=== PATIENT | female | born 1985 | race Caucasian/White ===

== ENCOUNTER 2019-09-30 07:17 | Inpatient (IN) ==
[2019-09-30] MEDS ORDERED: BUTORPHANOL 1 MG/ML VIAL IV PRN (08:17)
[2019-09-30] MEDS ORDERED: ONDANSETRON 4 MG/2 ML VIAL IV PRN (08:17)
[2019-09-30] MEDS ORDERED: BUTORPHANOL 2 MG/ML VIAL IV PRN (08:17)
[2019-09-30] MEDS ORDERED: LACTATED RINGERS 1,000 ML IV SCH (08:30)
[2019-09-30] MEDS ORDERED: OXYTOCIN/LR 20 UNIT/1,000 ML BAG IV SCH (08:30)
[2019-09-30] MEDS ORDERED: ONDANSETRON 4 MG/2 ML VIAL IV ONE (08:37)
[2019-09-30] MEDS ORDERED: CITRIC ACID/SODIUM CITRATE 30 ML UDCUP PO ONE (08:37)
[2019-09-30] MEDS ORDERED: LACTATED RINGERS 1,000 ML IV ONE (08:37)
[2019-09-30] MEDS ORDERED: hydrOXYzine HCL 25 MG/1 ML VIAL IM PRN (08:37)
[2019-09-30] MEDS ORDERED: FAMOTIDINE 20 MG/2 ML VIAL IV ONE (08:37)
[2019-09-30] MEDS ORDERED: diphenhydrAMINE 50 MG/1 ML VIAL IV PRN ×2 (08:37)
[2019-09-30] MEDS ORDERED: PROMETHAZINE 25 MG/1 ML VIAL IM ONE (08:37)
[2019-09-30] MEDS ORDERED: ePHEDrine 50 MG/ML AMP IV PRN (08:37)
[2019-09-30 08:42] LABS: Basophils % 0.2 % (0.0-0.8); Eosinophils % 0.3 % (0.00-10.9); Hematocrit 34.8 VOL% (35.7-47.0); Immature Granulocytes % 0.4 %; Immature Granulocytes Absolute 0.04 #; Lymphocytes # 1.9 10*3/uL (1.4-4.0); Mean Corpuscular HGB Conc 34.5 GM/DL (32-36); Mean Corpuscular Volume 85.3 FL (87-102); Mean Platelet Volume 10.5 FL (9.6-12.0); Monocytes % 5.9 % (1.7-12.7); Neutrophils % 72.2 % (38.7-73.9); Platelet Count 298 T/CUMM (130-400); Red Blood Count 4.08 MC/CUMM (3.8-5.5); Red Cell Distribution Width 14.5 % (9.3-17.3); White Blood Count 8.9 T/CUMM (4-12)
[2019-09-30 08:52] LABS: INR 0.9; PT Patient Result 9.4 SECS (9.6-12.2); Partial Thromboplastin Time 25.7 SECS (20.8-36.0)
[2019-09-30] MEDS ORDERED: ROPIVACAINE 0.2% 100 ML EPIDURAL SCH (09:00)
[2019-09-30 09:04] LABS: Albumin 2.8 G/DL (3.4-5.0); Osmolality,Calculated 266.1 MOS/KG (273-304); Total Protein 6.7 G/DL (6.4-8.3); Uric Acid 6.1 MG/DL (2.6-6.0)
[2019-09-30 12:25] LABS: Apearance,Urine CLEAR (Clear); Bilirubin,Urine Negative (Negative); Blood, Urine Negative (Negative); Glucose,Urine (UA) Negative (Negative); Ketones,Urine 5 mg/dL (Negative); Nitrite,Urine Negative (Negative); Protein,Urine Negative; RBC,Urine 1 /HPF (0-4); Squamous Epithelial Cell,Urine Occasional /HPF (0-10); Urine Color Straw (Yellow); Urine Specific Gravity 1.005 (1.001-1.035); Urine Urobilinogen < 2.0 EU/DL (0.2-1.0); WBC,Urine <1 /HPF (0-6)
[2019-09-30] MEDS ORDERED: LIDOCAINE 1% 50 ML VIAL ONE (14:01)
[2019-09-30] MEDS ORDERED: miSOPROStoL 200 MCG TABLET ONE (14:01)
[2019-09-30] MEDS ORDERED: CARBOPROST TROMETHAMINE 250 MCG/ML AMP IM ONE (14:02)
[2019-09-30] MEDS ORDERED: oxyCODONE/ACETAMINOPHEN 5-325 MG TABLET PO PRN ×2 (17:45)
[2019-09-30] MEDS ORDERED: OXYTOCIN/LR 20 UNIT/1,000 ML BAG IV ONE (17:45)
[2019-09-30] MEDS ORDERED: HYDROCORTISONE 2.5% RECTAL CREAM 30 GM TUBE TOP PRN (17:45)
[2019-09-30] MEDS ORDERED: BENZOCAINE 20%/MENTHOL 0.5% SPRAY 56 GM CAN TOP PRN (17:45)
[2019-09-30] MEDS ORDERED: LANOLIN 50% CREAM 0.3 OZ TUBE TOP PRN (17:45)
[2019-09-30] MEDS ORDERED: ACETAMINOPHEN 325 MG TABLET PO PRN (17:45)
[2019-09-30] MEDS ORDERED: WITCH HAZEL PADS 100/JAR TOP PRN (17:45)
[2019-09-30] MEDS ORDERED: RHO(D) IMMUNE GLOBULIN 300 MCG SYRINGE IM ONE (17:45)
[2019-09-30] MEDS ORDERED: MEASLES/MUMPS/RUBELLA VACCINE 0.5 ML VIAL SUBCUT ONE (17:45)
[2019-09-30] MEDS ORDERED: BISACODYL 10 MG SUPP RECTAL PRN (17:45)
[2019-09-30] MEDS ORDERED: DIPH/TET/ACEL PERT BOOSTER VACCINE 0.5 ML VIAL IM ONE (17:45)
[2019-09-30] MEDS: DOCUSATE SODIUM 100 MG CAPSULE PO SCH (21:06)
[2019-10-01] MEDS: IBUPROFEN 800 MG TABLET PO PRN ×2 (00:20→16:43)
[2019-10-01 05:06] LABS: Basophils % 0.3 % (0.0-0.8); Eosinophils # 0.1 10*3/uL (0.0-0.87); Eosinophils % 1.2 % (0.00-10.9); Hematocrit 31.3 VOL% (35.7-47.0); Hemoglobin 10.5 GM/DL (12.0-16.0); Immature Granulocytes % 0.5 %; Immature Granulocytes Absolute 0.06 #; Lymphocytes % 24.7 % (21.3-54.2); Mean Corpuscular HGB Conc 33.5 GM/DL (32-36); Mean Corpuscular Volume 87.7 FL (87-102); Mean Platelet Volume 10.7 FL (9.6-12.0); Monocytes % 6.2 % (1.7-12.7); Neutrophils % 67.1 % (38.7-73.9); Platelet Count 264 T/CUMM (130-400); Red Blood Count 3.57 MC/CUMM (3.8-5.5); Red Cell Distribution Width 14.6 % (9.3-17.3); White Blood Count 12.1 T/CUMM (4-12)
[2019-10-01] MEDS: DOCUSATE SODIUM 100 MG CAPSULE PO SCH ×2 (08:46→21:04)
[2019-10-01 13:19] VITALS: BP 131/72
[2019-10-02] MEDS: DOCUSATE SODIUM 100 MG CAPSULE PO SCH (08:50)
== END 2019-10-02 11:10 | disposition home or self-care (01) | DRG 807 ==
LOC: N.LDOUT 07:17 → N.LD 07:19
PROVIDERS: ADMIT Obstetrics & Gynecology; ATTEND Obstetrics & Gynecology